=== PATIENT | male | born 1950 | race Caucasian/White ===

== ENCOUNTER 2018-11-25 07:57 | Emergency (ER) | payer MEDICARE, OTHER ==
[2018-11-25] MEDS ORDERED: Ondansetron PF 4 MG/2 ML Vial ONE (08:33)
[2018-11-25 08:37] LABS: #Eosinphils 0.1 thou/uL (0.0-0.7); #Lymphocytes 0.6 thou/uL (1.20-3.40); #Monocytes 0.3 thou/uL (0.11-0.59); #Neutrophils 5.7 thou/uL (1.40-6.50); %Basophils 0.2 % (0.0-1.0); %Eosinophils 0.8 % (0.0-10.0); %Lymphocytes 8.6 % (21.0-51.0); %Monocytes 4.9 % (0.0-10.0); %Neutrophils 85.6 % (42.0-75.0); Hemoglobin 16.9 g/dL (14.0-18.0); Mean Corpuscular Hemoglobin 32.1 pg (27.0-31.0); Mean Corpuscular Volume 91.8 fL (78.0-98.0); Mean Platelet Volume 9.4 fL (7.4-10.4); Platelet Count 209 thou/uL (130-400); RBC Distribution Width 12.4 % (11.5-14.5); Red Blood Cell (RBC) Count 5.26 mill/uL (4.70-6.10); White Blood Cell (WBC) Count 6.7 thou/uL (4.8-10.8)
--- NOTE | 2018-11-25 08:37 | RAD ---
PORTABLE CHEST 1 VIEW: Date: 11/25/18 Time: 0829 hours HISTORY: Vomiting, fever, flu-like symptoms. FINDINGS: The heart size is normal. The lungs are well expanded without focal areas of consolidation, pneumotho races, or pleural effusions. IMPRESSION: No radiographic evidence of acute cardiopulmonary process. POS: OFF
[2018-11-25 09:26] LABS: ALT (SGPT) 53 U/L (8-55); AST (SGOT) 32 U/L (5-34); Albumin 3.6 g/dL (3.4-4.8); Alkaline Phosphatase 71 U/L (40-150); Anion Gap 14 mmol/L (10-20); BUN (Urea Nitrogen) 18 mg/dL (8.4-25.7); Bilirubin, Total 1.5 mg/dL (0.2-1.2); Calc. Creatinine Clearance 0 mL/min (70-130); Calcium 8.7 mg/dL (7.8-10.44); Carbon Dioxide 20 mmol/L (23-31); Chloride 104 mmol/L (98-107); Estimated GFR-MDRD 71; Globulin 2.6 g/dL (2.4-3.5); Glucose 248 mg/dL (80-115); Protein, Total 6.2 g/dL (5.8-8.1); Sodium 134 mmol/L (136-145)
[2018-11-25 09:47] LABS: Bilirubin Small (Negative); Blood, Urine Negative (Negative); Clarity CLEAR (Clear); Glucose, Urine (Dipstick) >=1000 mg/dL (Negative); Leukocyte Negative (Negative); Nitrite Negative (Negative); Protein, Urine (Dipstick) Trace mg/dL (Neg-Trace); Specific Gravity, Urine 1.043 (1.002-1.036); pH, Urine 5.5 (5.0-9.0)
[2018-11-25] MEDS ORDERED: Metoclopramide HCl 10 MG/2 ML VIAL ONE (09:54)
== END 2018-11-25 10:10 | disposition home or self-care (01) ==
LOC: ERS 07:57
DX: R11.2 Nausea with vomiting, unspecified (principal); Z79.4 Long term (current) use of insulin; Z79.899 Other long term (current) drug therapy
CPT/HCPCS: 36415; 71045; 80053; 81003; 84484; 85025; 87086; 87804; 93005; 96361; 96374; 96375; J2405; J2765